=== PATIENT | male | born 1980 | race Caucasian/White ===

== ENCOUNTER → 2017-01-06 | Outpatient (CLI) | payer OTHER ==
[~2017-01-06] MED LIST: CEPHALEXIN500 M1 PO; CYCLOBENZAPRINE10 MG PO; DAYPRO600 M1 PO; FLEXERIL10 MG PO; FLEXERIL5 MG PO; HYDROCODONE BIT1 T11 PO; MEDROL DOSEPAK4 MG PO; MOTRIN800 MG PO; NAPRELAN500 MG PO; NAPROSYN500 MG PO; NAPROXEN250 MG PO; PREDNICOT20 MG PO; PREDNISONE20 MG PO; PREDNISONE50 MG PO; ROBAXIN750 MG PO; TRAMADOL HCL50 MG PO; VALIUM10 MG PO; VICODIN 5/500 505 MG PO; VICODIN 500 MG-1 TAB PO
== END | disposition home or self-care (01) ==
LOC: RAD 14:23
DX: M54.6 Pain in thoracic spine (principal)

== ENCOUNTER 2017-01-11 13:43 | Emergency (ER) | payer OTHER ==
[~2017-01-11] VITALS: Ht 180.3 cm; Wt 86.2 kg
[2017-01-11] MEDS ORDERED: PREDNISONE10 MG PO (13:57)
[2017-01-11] MEDS ORDERED: ULTRAM50 MG PO (14:42)
[2017-01-11] MEDS ORDERED: CYCLOBENZAPRINE5 M3 PO (14:42)
== END 2017-01-11 14:45 | disposition home or self-care (01) ==
LOC: ED 13:43
DX: M54.6 Pain in thoracic spine (principal); F17.200 Nicotine dependence, unspecified, uncomplicated

== ENCOUNTER 2017-03-30 12:27 | Emergency (ER) | payer OTHER ==
[~2017-03-30] VITALS: Ht 180.3 cm; Wt 86.2 kg
[~2017-03-30 12:27] MED LIST changes: +CYCLOBENZAPRINE5 M3 PO; +PREDNISONE10 MG PO; +ULTRAM50 MG PO
[2017-03-30 16:11] LABS: BASO # 0.1 10*3/uL (0.0-0.1); BASO % 0.3 % (0.0-1.0); EOS # 0.2 10*3/uL (0.0-0.4); EOS % 1.2 % (1.0-4.0); HEMATOCRIT 44.2 % (42.0-52.0); HEMOGLOBIN 14.8 g/dl (14.0-18.0); IG # 0.1 10*3/uL (0.0-0.1); LYMPH # 3.1 10*3/uL (1.3-4.4); LYMPH % 19.3 % (27.0-41.0); MEAN CELL VOLUME 93.2 fl (80.0-94.0); MEAN CORPUSCULAR HGB 31.2 pg (27.0-31.0); MEAN CORPUSCULAR HGB CONC 33.5 g/dl (33.0-37.0); MEAN PLATELET VOLUME 9.3 fl (9.6-12.3); MONO # 0.9 10*3/uL (0.1-1.0); MONO % 5.5 % (3.0-9.0); NEUT # 11.8 10*3/uL (2.3-7.9); NEUT % 73.3 % (47.0-73.0); PLATELET COUNT AUTOMATED 303 10*3/uL (130-400); RED BLOOD COUNT 4.74 10*6/uL (4.50-5.90); WHITE BLOOD COUNT 16.1 10*3/uL (4.8-10.8)
[2017-03-30 16:28] LABS: ALBUMIN 4.2 gm/dl (3.1-4.5); ALKALINE PHOSPHATASE 97 U/L (45-117); BILIRUBIN, TOTAL 0.7 mg/dl (0.2-1.0); BUN 9 mg/dl (7-24); CARBON DIOXIDE 26 mmol/L (21-32); CHLORIDE 103 mmol/L (98-107); EST GLOM FILT AFRICAN AMERICAN > 60 ml/min; GLUCOSE 92 mg/dL (65-99); POTASSIUM 3.2 mmol/L (3.5-5.1); SGOT/AST 16 IU/L (3-35); SGPT/ALT 22 U/L (12-78); SODIUM 137 mmol/L (136-145); TOTAL PROTEIN 7.7 gm/dL (6.4-8.2)
== END 2017-03-30 17:06 | disposition left against medical advice (07) ==
LOC: ED 12:27
PROVIDERS: Emergency Medicine
DX: N49.2 Inflammatory disorders of scrotum (principal); F17.200 Nicotine dependence, unspecified, uncomplicated

== ENCOUNTER 2018-01-08 19:33 | Emergency (ER) | payer OTHER ==
[~2018-01-08] VITALS: Ht 180.3 cm; Wt 79.4 kg
[2018-01-08] MEDS ORDERED: PREDNISONE50 MG PO (19:47)
[2018-01-08] MEDS ORDERED: NAPROSYN500 MG PO (19:47)
[2018-01-08] MEDS ORDERED: CYCLOBENZAPRINE10 MG PO (19:47)
== END 2018-01-08 19:53 | disposition home or self-care (01) ==
LOC: ED 19:33
DX: M54.5 Low back pain (principal); F17.200 Nicotine dependence, unspecified, uncomplicated

== ENCOUNTER 2018-07-11 22:09 | Emergency (ER) | payer OTHER ==
[~2018-07-11] VITALS: Ht 180.3 cm; Wt 81.6 kg
[2018-07-12] MEDS ORDERED: LIDOCAINE PAIN1 EACH T (00:11)
[2018-07-12] MEDS ORDERED: NAPROSYN500 MG PO (00:11)
[2018-07-12] MEDS ORDERED: CYCLOBENZAPRINE10 MG PO (00:11)
== END 2018-07-12 00:26 | disposition home or self-care (01) ==
LOC: ED 22:09
DX: S16.1XXA Strain of muscle, fascia and tendon at neck level, initial encounter (principal); M54.5 Low back pain; M54.6 Pain in thoracic spine; Z79.1 Long term (current) use of non-steroidal anti-inflammatories (NSAID); Z79.899 Other long term (current) drug therapy; V43.52XA Car driver injured in collision with other type car in traffic accident, initial encounter; Y93.I9 Activity, other involving external motion; Y92.488 Other paved roadways as the place of occurrence of the external cause; Y99.8 Other external cause status

== ENCOUNTER 2018-07-14 12:25 | Emergency (ER) | payer OTHER ==
[~2018-07-14] VITALS: Ht 180.3 cm; Wt 81.6 kg
[~2018-07-14 12:25] MED LIST changes: +LIDOCAINE PAIN1 EACH T
[2018-07-14] MEDS ORDERED: NAPROSYN500 MG PO (13:00)
[2018-07-14] MEDS ORDERED: CYCLOBENZAPRINE10 MG PO (13:00)
[2018-07-14] MEDS ORDERED: TYLENOL325 M1 PO (13:00)
== END 2018-07-14 13:34 | disposition home or self-care (01) ==
LOC: ED 12:25
DX: S06.0X0A Concussion without loss of consciousness, initial encounter (principal); S13.4XXA Sprain of ligaments of cervical spine, initial encounter; V89.2XXA Person injured in unspecified motor-vehicle accident, traffic, initial encounter; Y93.89 Activity, other specified; Y92.413 State road as the place of occurrence of the external cause; Y99.8 Other external cause status

== ENCOUNTER 2019-07-19 10:55 | Emergency (ER) | payer SELFPAY ==
[~2019-07-19] VITALS: Ht 180.3 cm; Wt 81.6 kg
[~2019-07-19 10:55] MED LIST changes: +TYLENOL325 M1 PO
[2019-07-19] MEDS ORDERED: ROBAXIN-750750 MG PO (12:40)
[2019-07-19] MEDS ORDERED: PREDNISONE20 M1 PO (12:40)
== END 2019-07-19 12:46 | disposition home or self-care (01) ==
LOC: ED 10:55
DX: S33.5XXA Sprain of ligaments of lumbar spine, initial encounter (principal); H73.891 Other specified disorders of tympanic membrane, right ear; X50.9XXA Other and unspecified overexertion or strenuous movements or postures, initial encounter; Y93.89 Activity, other specified; Y92.89 Other specified places as the place of occurrence of the external cause; Y99.0 Civilian activity done for income or pay

== ENCOUNTER → 2020-05-24 | Outpatient (CLI) | payer OTHER ==
[~2020-05-24] MED LIST changes: +PREDNISONE20 M1 PO; +ROBAXIN-750750 MG PO
[2020-05-24 11:00] LABS: HEMATOCRIT 46.7 % (42.0-52.0); MEAN CELL VOLUME 94.5 fl (80.0-94.0); MEAN CORPUSCULAR HGB 30.8 pg (27.0-31.0); MEAN CORPUSCULAR HGB CONC 32.5 g/dl (33.0-37.0); MEAN PLATELET VOLUME 8.7 fl (9.6-12.3); RED BLOOD COUNT 4.94 10*6/uL (4.50-5.90); WHITE BLOOD COUNT 10.2 10*3/uL (4.8-10.8)
[2020-05-24 11:29] LABS: ALBUMIN 3.9 gm/dl (3.1-4.5); BUN 11 mg/dl (7-24); CHLORIDE 103 mmol/L (98-107); CREATININE 0.76 mg/dL (0.70-1.30); SGOT/AST 15 IU/L (3-35); SGPT/ALT 33 U/L (12-78); SODIUM 136 mmol/L (136-145); TRIGLYCERIDES 102 mg/dl (<150); VLDL CHOLESTEROL 20 mg/dL (6-40)
[2020-05-24 11:35] LABS: ALKALINE PHOSPHATASE 92 U/L (45-117); CHOLESTEROL 141 mg/dL (<200); HDL CHOLESTEROL 59 mg/dl (40-60); LDL CHOLESTEROL 62 mg/dL (9-159); TOTAL PROTEIN 7.4 gm/dL (6.4-8.2)
== END | disposition home or self-care (01) ==
LOC: LAB 10:29
PROVIDERS: ATTEND Family Medicine
DX: E78.00 Pure hypercholesterolemia, unspecified (principal); E55.9 Vitamin D deficiency, unspecified; R06.02 Shortness of breath; R05 Cough

== ENCOUNTER → 2020-12-16 | Outpatient (CLI) | payer OTHER | END | disposition home or self-care (01) | LOC: COVID19 11:11 | PROVIDERS: ATTEND Family Medicine | DX: U07.1 COVID-19 (principal) ==

== ENCOUNTER 2021-04-30 19:44 | Emergency (ER) | payer OTHER ==
[~2021-04-30] VITALS: Ht 180.3 cm; Wt 77.1 kg
== END 2021-04-30 21:10 | disposition home or self-care (01) ==
LOC: ED 19:44
DX: M79.641 Pain in right hand (principal)

== ENCOUNTER → 2021-05-14 | Outpatient (CLI) | payer OTHER | END | disposition home or self-care (01) | LOC: COVID19 15:24 | PROVIDERS: ATTEND Internal Medicine | DX: Z11.52 Encounter for screening for COVID-19 (principal) ==

== ENCOUNTER 2021-11-02 17:46 | Emergency (ER) | payer OTHER ==
[~2021-11-02] VITALS: Ht 180.3 cm; Wt 83.9 kg
[2021-11-02] MEDS ORDERED: PREDNISONE20 M1 PO (22:14)
[2021-11-02] MEDS ORDERED: METHOCARBAMOL500 M1 PO (22:14)
== END 2021-11-02 22:20 | disposition home or self-care (01) ==
LOC: ED 17:46
DX: M25.511 Pain in right shoulder (principal)

== ENCOUNTER 2021-11-22 12:51 | Emergency (ER) | payer OTHER ==
[~2021-11-22] VITALS: Ht 180.3 cm; Wt 81.6 kg
[~2021-11-22 12:51] MED LIST changes: +METHOCARBAMOL500 M1 PO
== END 2021-11-22 15:30 | disposition left against medical advice (07) ==
LOC: ED 12:51
DX: M54.12 Radiculopathy, cervical region (principal)

== ENCOUNTER 2021-12-27 18:54 | Emergency (ER) | payer OTHER ==
[2021-12-27] MEDS ORDERED: METHOCARBAMOL500 M1 PO (20:41)
[2021-12-27] MEDS ORDERED: PREDNISONE20 M1 PO (20:41)
== END 2021-12-27 21:17 | disposition home or self-care (01) ==
LOC: ED 18:54
DX: M54.12 Radiculopathy, cervical region (principal)

== ENCOUNTER 2023-08-21 18:23 | Emergency (ER) | payer OTHER ==
[~2023-08-21] VITALS: Ht 165.1 cm; Wt 72.6 kg
[2023-08-22] MEDS ORDERED: ASPERCREME LID1 EACH T (11:54)
[2023-08-22] MEDS ORDERED: MELOXICAM15 MG PO (11:54)
== END 2023-08-21 22:22 | disposition home or self-care (01) ==
LOC: ED 18:23
DX: S20.211A Contusion of right front wall of thorax, initial encounter (principal); F17.200 Nicotine dependence, unspecified, uncomplicated; Z79.899 Other long term (current) drug therapy; W18.00XA Striking against unspecified object with subsequent fall, initial encounter; Y93.89 Activity, other specified; Y92.89 Other specified places as the place of occurrence of the external cause; Y99.8 Other external cause status

== ENCOUNTER 2023-08-22 10:05 | Emergency (ER) | payer OTHER ==
[~2023-08-22] VITALS: Ht 170.1 cm; Wt 84.8 kg
[2023-08-22] MEDS ORDERED: MELOXICAM15 MG PO (11:54)
[2023-08-22] MEDS ORDERED: ASPERCREME LID1 EACH T (11:54)
== END 2023-08-22 12:01 | disposition home or self-care (01) ==
LOC: ED 10:05
DX: S20.211A Contusion of right front wall of thorax, initial encounter (principal); W19.XXXA Unspecified fall, initial encounter; Y93.89 Activity, other specified; Y92.89 Other specified places as the place of occurrence of the external cause; Y99.8 Other external cause status

== ENCOUNTER 2023-09-29 11:26 | Emergency (ER) | payer OTHER ==
[~2023-09-29] VITALS: Wt 83.9 kg
[~2023-09-29 11:26] MED LIST changes: +ASPERCREME LID1 EACH T; +MELOXICAM15 MG PO
[2023-09-29] MEDS ORDERED: HYDROCODONE-AC1 EAC1 PO (13:36)
== END 2023-09-29 13:20 | disposition home or self-care (01) ==
LOC: ED 11:26
DX: S62.624A Displaced fracture of middle phalanx of right ring finger, initial encounter for closed fracture (principal); S99.911A Unspecified injury of right ankle, initial encounter; S99.921A Unspecified injury of right foot, initial encounter; Z98.890 Other specified postprocedural states; W11.XXXA Fall on and from ladder, initial encounter; Y93.39 Activity, other involving climbing, rappelling and jumping off; Y92.89 Other specified places as the place of occurrence of the external cause; Y99.8 Other external cause status